=== PATIENT | male | born 1970 | race Caucasian/White ===

== ENCOUNTER → 2019-04-02 | Outpatient (CLI) | payer OTHER ==
[~2019-04-02] MED LIST: REGADENOSON 0.4 MG/5 ML DISP.SYRIN. IV ONE
--- NOTE | 2019-04-03 12:49 | PCVCIMAG ---
APPROVED REPORT Study performed: 04/02/2019 13:27:55 EXAM: Comprehensive 2D, Doppler, and color-flow Echocardiogram Patient Location: Echo lab Room #: 2Status: routine BSA: 2.37 HR: 76 bpm Rhythm: NSR Other Information Study Quality: Fair Indications CAD Hypertension/HDD COR CA+ >600 2D Dimensions IVSd: 8.33 (7-11mm)LVOT Diam: 24.17 (18-24mm) LVDd: 46.37 mm PWd: 9.11 (7-11mm) LVDs: 25.07 (25-40mm) Left Atrium: 34.00 (27-40mm) Aortic Root: 31.15 mm LV Single Plane 4CH: 59.00 % LV Single Plane 2CH: 58.34 % Biplane EF: 57.9 % Volumes Left Atrial Volume (Systole) Single Plane 4CH: 61.44 mLSingle Plane 2CH: 65.03 mL Biplane LA Volume: 65.00 mLLA ESV Index: 27.00 mL/m2 Aortic Valve AoV Peak Leopodlo.: 1.33 m/s AO Peak Gr.: 7.05 mmHgLVOT Max P.24 mmHg LVOT Max V: 0.97 m/s AURELIO Vmax: 3.33 cm2 Mitral Valve E/A Ratio: 1.5 MV Decel. Time: 147.61 ms MV E Max Leopoldo.: 0.78 m/s MV A Leopoldo.: 0.51 m/s IVRT: 89.97 ms TDI E/Lateral E': 6.50E/Medial E': 7.80 Medial E' Leopoldo.: 0.10 m/s Lateral E' Leopoldo.: 0.12 m/s Pulmonary Valve PV Peak Leopoldo.: 0.89 m/sPV Peak Gr.: 3.18 mmHg Pulmonary Vein P Vein S: 0.50 m/sP Vein A: 0.24 m/s P Vein D: 0.38 m/sP Vein A Dur.: 100.3 msec P Vein S/D Ratio: 1.32 Tricuspid Valve TR Peak Leopoldo.: 2.13 m/s TR Peak Gr.: 18.12 mmHg TV Vmax: 0.63 m/sPA Pressure: 25.00 mmHg Left Ventricle The left ventricle is normal size. There is normal LV segmental wall motion. There is normal left ventricular wall thickness. Left ventricular systolic function is normal. The left ventricular ejection fraction is within the normal range. LVEF is 55-60%. The left ventricular diastolic function is normal. Right Ventricle The right ventricle is normal size. The right ventricular systolic function is normal. Atria The left atrium size is normal. The right atrium size is normal. Aortic Valve Aortic valve is trileaflet. The aortic valve is normal in structure and function. No aortic regurgitation is present. There is no aortic valvular stenosis. Mitral Valve The mitral valve is normal in structure. There is no mitral valve regurgitation noted. No evidence of mitral valve stenosis. Tricuspid Valve The tricuspid valve is normal in structure. Trace tricuspid regurgitation. No pulmonary hypertension. Pulmonic Valve The pulmonary valve is normal in structure. There is no pulmonic valvular regurgitation. Great Vessels The aortic root is normal in size. The ascending aorta is normal in size. IVC is normal in size and collapses >50% with inspiration. Pericardium There is no pericardial effusion. There is no pleural effusion. <Conclusion> The left ventricle is normal size. LVEF is 55-60%. Aortic valve is trileaflet. The aortic valve is normal in structure and function. The mitral valve is normal in structure. The tricuspid valve is normal in structure. Trace tricuspid regurgitation. No pulmonary hypertension. The pulmonary valve is normal in structure. There is no pericardial effusion.
--- NOTE | 2019-04-05 12:48 | PCVCIMAG ---
APPROVED REPORT Imaging Protocol: Rest Tc-99m/Stress Tc-99m 1 day Study performed: 04/02/2019 14:12:12 Indication: Dyspnea, CAD, Dizzy Patient Location: Out-Patient Stress Nurse: Alicia Valencia RN, Shannen Hoskins RN [place] Tech:Adela Hodge [facility] Ht: 5 ft 11 in Wt: 277 lbs BSA: 2.42 m2 HR: 68 bpm BP: 129/82 mmHg BMI: 38.62 Rhythm: Normal Sinus Rhythm Medical History Medical History: Hyperlipidemia, HTN, Diabetes Medications: Lisinopril - HCTZ Allergies: Metformin, Niaspan Cardiac Risk Factors: Age Pretest Chest Pain Characteristics: No chest pain Exercise History: Physically active Resting Data Rest SPECT myocardial perfusion imaging was performed in supine position 45 minutes following the intravenous injection of 12.6 mCi of Tc-99m Sestamibi. Time of rest injection: 1315 Administration Route: IV Administration Site: Right AC Pharmacologic Stress Pharmacologic stress test was performed by injecting Regadenoson 0.4 mg IV push over 10-15 seconds immediately followed by the intravenous injection of 41.5 mCi of Tc-99m Sestamibi. Time of stress injection: 1445 Date: 04/02/2019 Administration Route: IV Administration Site: Right AC Gated Stress SPECT was performed 45 minutes after stress injection. The images were gated to evaluate regional wall motion and calculate left ventricular ejection fraction. Stress Test Details Stress Test: Pharmacologic stress testing performed using 0.4 mg of regadenoson per 5 mL given IV over 10 seconds. Reason for pharmacologic stress test: physical limitation, dizziness. HRMax Heart Rate (APMHR): 170 bpm Resting HR: 68 bpmTarget HR (85% APMHR): 144 bpm Max HR Achieved: 109 bpm % of APMHR: 64 Recovery HR: 87 bpm BP Resting BP: 129/82 mmHg Max BP: 124/83 mmHg Recovery BP: 138/80 mmHg ECG Resting ECG: Normal Sinus Rhythm Stress ECG: Sinus Tachycardia Arrhythmia: None Recovery ECG: Sinus Rhythm Clinical Reason for Termination: Completed protocol Stress Symptoms: Dyspnea, Dizziness, Leg heaviness, Diaphoresis Symptoms resolved with caffeine. Stress ECG Conclusion 1. Adequate response intravenous Lexiscan 2. Hematocrit heart rate for ECG diagnosis Study Data Post stress, the left ventricular ejection was 72%.. SSS: 1 SRS: 1 SDS: 0 TID = 1.20. Perfusion There is a medium area of moderately reduced uptake in the mid and apical segment of the inferior wall which is seen on the stress images as well as the resting images. This area thickens and moves normally and is most consistent with attenuation artifact. Wall Motion Normal left ventricular wall motion. Nuclear Conclusion ECG Findings: non-diagnostic Clinical Findings: negative for ischemia Nuclear Findings: negative for ischemia Exercise Capacity: not assessed Left Ventricular Function: normal 1. Low risk study without evidence of inducible ischemia although diffuse patchy uptake may represent three-vessel coronary disease or body habitus artifact. Clinical correlation suggested 2. Post exercise left ventricle ejection fraction 72% with normal contractility <Conclusion> 1. Adequate response intravenous Lexiscan 2. Hematocrit heart rate for ECG diagnosis
== END | disposition home or self-care (01) ==
LOC: EDUNIT# 10:31 → EDSTATUS 13:35 → PCVCIMAG 13:38
PROVIDERS: ATTEND Internal Medicine
DX: I25.10 Atherosclerotic heart disease of native coronary artery without angina pectoris (principal); R93.1 Abnormal findings on diagnostic imaging of heart and coronary circulation; R06.00 Dyspnea, unspecified
CPT/HCPCS: 78452; 93017; 93306; A9500; J2785